=== PATIENT | male | born 1950 | race African-American/Black ===

== ENCOUNTER 2017-07-04 12:35 | Inpatient (IN) | payer OTHER ==
[~2017-07-04] VITALS: Ht 182.9 cm; Wt 104.3 kg
--- NOTE | ~2017-07-04 | D ---
[facility] [place] [address] DISCHARGE SUMMARY Name: BARRETT CARBAJAL Room #: 417-I [facility].#: [id number] Admission: 07/04/17 Attend Phys: Hamilton Vasquez MD Discharge: 07/06/17 Date of : 52 Report #: [id number] THIS REPORT FOR: //name// CC: Hamilton Vasquez DATE OF SERVICE: 07/06/2017 SUMMARY OF HISTORY AND PHYSICAL: The patient presented to the office with fever and rigors and shaking chills. His urinalysis was grossly abnormal. He was felt to have a significant cystitis, but more likely pyelonephritis given the systemic nature of his presenting symptoms. Admission for intravenous antibiotic therapy and further evaluation was indicated. SUMMARY OF HOSPITAL COURSE: He was admitted, Abernathy catheter was placed and drainage established and he was started on intravenous antibiotics. He quickly improved. CT scanning showed stranding around both kidneys and suggested pyelonephritis. He was seen in Urology consultation and recommendation was made for him to continue to self cath 3 or 4 times a week to keep persistent dilating the area of urethral stenosis that he had suffered many years ago when being catheterized and a false channel was created. After rehydration, his albumin was low along with low absolute lymphocyte count fulfilling the criteria for severe malnutrition. LABORATORY DATA: His creatinine was 1.6 on admission and dropped slightly to 1.4 at discharge, and this was baseline for him. Potassium 3.1 on admission, was replaced. His total bilirubin was 1.2, which is also a baseline for him. Albumin was 2.6 on the second hospital day after partial rehydration, indicating the presence of severe malnutrition. There was also absolute lymphopenia present. Hemoglobin was 14.3 on admission and 13.6 with rehydration. Erythrocyte sedimentation rate was elevated at 40. Urinalysis showed blood and leukocytes with many white blood cells. The culture grew E. coli greater than 100,000 colony forming units/mL. The E. coli was sensitive to all antibiotics tested. Urine cultures remained negative. CT scan of the abdomen and pelvis showed mild fatty infiltration of the liver. Bilateral perinephric fat stranding was noted. There were other changes that were consistent with bilateral pyelonephritis. An occasional chronic diverticulum was present without signs of infection. [address] [address] DISCHARGE SUMMARY Name: BARRETT CARBAJAL Room #: 417-I [facility]#: [id number] Admission: 07/04/17 Attend Phys: Hamilton Vasquez MD Discharge: 07/06/17 Date of : 52 Report #: [id number] DISCHARGE DIAGNOSES: 1. Acute pyelonephritis. 2. History of urethral stricture in the distant past from urethral injury, the patient self catheterizes several times a week to keep the area open. The patient is discharged on the medicines listed in the discharge sheet in the nursing portion of the computer medical record. He is to continue antibiotic for 7 more days after he gets home and he is to be seen in my office within 3-4 days. He is to drink quite a bit of fluid and use Tylenol for discomfort or elevated blood pressure. By: [id number] Hamilton Vasquez MD /nt
--- NOTE | ~2017-07-04 | EKG ---
[address] [address] ELECTROCARDIOGRAM REPORT Name: BARRETT CARBAJAL Room #: 417-I ADM IN M.R.#: [id number] Admission: 07/04/17 Attend Phys: Hamilton Vasquez MD Discharge: Date of : 52 Report #: [id number] THIS REPORT FOR: //name// [facility] Test Date: 2017-07-04 Test Time: 14:13:57 Pat Name: BARRETT CARBAJAL Department: Room: [facility] Gender: M Schedule Maker: Mary : 1950 Requested By: Hamilton Vasquez Order Number: [id number] MD: Osmel Lai Measurements Intervals Devol Rate: 95 P: 57 IL: 163 QRS: -20 QRSD: 91 T: 64 QT: 351 QTc: 442 Interpretive Statements Sinus rhythm Borderline left axis deviation Low voltage, extremity leads Nonspecific T abnormalities, anterior leads No previous ECG available for comparison Electronically Signed On 07-05-2017 7:57:05 CDT by Osmel Lai [email or web address] <ELECTRONICALLY SIGNED> By: Osmel Lai MD, [facility] 07/05/17 0757 1413 1413 Osmel Lai MD, [facility] /EPI
[2017-07-04 12:50] VITALS: BP 151/76
[2017-07-04] MEDS ORDERED: METOPROLOL SUCC50 MG PO (13:21)
[2017-07-04] MEDS ORDERED: LOTREL 5-10 MG1 EACH PO (13:23)
[2017-07-04] MEDS ORDERED: ALLEGRA ALLERG180 MG PO (13:24)
[2017-07-04] MEDS ORDERED: CRESTOR10 MG PO (13:25)
[2017-07-04] MEDS ORDERED: CHLORTHALIDONE25 MG PO (13:30)
[2017-07-04] MEDS ORDERED: FLECAINIDE ACE100 MG PO (13:31)
[2017-07-04] MEDS ORDERED: KIDS VITAMIN400 UNIT PO (13:32)
[2017-07-04 14:42] LABS: ABSOLUTE NEUTROPHILS 8.2 thou/uL (1.4-8.2); BASOPHILS 0.6 % (0.0-2.0); EOSINOPHILS 0.1 % (0.0-3.0); HEMATOCRIT 41.9 % (42.0-52.0); HEMOGLOBIN 14.3 gm/dL (14.0-18.0); LYMPHOCYTES 6.2 % (24.0-44.0); MCH 28.8 pg (26.0-34.0); MCHC 34.2 g/dL (28.0-37.0); MCV 84.3 fL (80.0-100.0); MONOCYTES 12.9 % (1.0-8.0); PLATELET COUNT 182 thou/uL (150-400); POLYS 80.2 % (36.0-66.0); RBC 4.97 mil/uL (4.50-6.00); RDW 13.6 % (10.5-14.5); WBC 10.2 thou/uL (4.0-11.0)
[2017-07-04 14:44] LABS: MANUAL DIFF NO
[2017-07-04 14:58] LABS: CREATININE 1.6 mg/dL (0.7-1.3); POTASSIUM 3.1 mmol/L (3.5-5.1); TOTAL BILIRUBIN 1.2 mg/dL (<0.1-1.0); TOTAL PROTEIN 7.3 g/dL (6.4-8.2)
[2017-07-04 15:06] LABS: URINE BILIRUBIN NEGATIVE (Negative); URINE BLOOD 3+ (Negative); URINE COLOR YELLOW; URINE GLUCOSE-RANDOM* NEGATIVE (Negative); URINE KETONES 1+ (Negative); URINE PROTEIN (DIPSTICK) 2+ (Negative)
[2017-07-04 15:09] LABS: URINE LEUKOCYTES-REFLEX 2+ (Negative)
[2017-07-04 15:16] LABS: CASTS None Seen /LPF (None Seen); CRYSTALS None Seen /LPF (None Seen); SQUAMOUS 0-3 Few /LPF (0-3); URINE RBC 0-2 Rare /HPF (0-2); URINE WBC-REFLEX >25 Many /HPF (0-5)
[2017-07-04 20:04] VITALS: BP 143/75
[2017-07-05 03:30] VITALS: BP 129/82
[2017-07-05 06:12] LABS: HEMATOCRIT 40.2 % (42.0-52.0); HEMOGLOBIN 13.6 gm/dL (14.0-18.0); MCH 28.7 pg (26.0-34.0); MCHC 33.7 g/dL (28.0-37.0); RBC 4.73 mil/uL (4.50-6.00); RDW 13.4 % (10.5-14.5); WBC 8.9 thou/uL (4.0-11.0)
[2017-07-05 06:23] LABS: ALBUMIN 2.6 g/dL (3.4-5.0); CALCIUM 8.3 mg/dL (8.5-10.1); CREATININE 1.5 mg/dL (0.7-1.3); POTASSIUM 3.5 mmol/L (3.5-5.1)
[2017-07-05 07:13] VITALS: BP 145/67
[2017-07-05 16:10] VITALS: BP 128/71
[2017-07-05 20:00] VITALS: BP 134/58
[2017-07-06 04:00] VITALS: BP 152/87
[2017-07-06 07:16] LABS: CALCIUM 8.1 mg/dL (8.5-10.1); CREATININE 1.4 mg/dL (0.7-1.3); POTASSIUM 3.7 mmol/L (3.5-5.1)
[2017-07-06 09:28] VITALS: BP 152/87
[2017-07-06 16:12] VITALS: BP 139/69
[2017-07-06] MEDS ORDERED: ASPIRIN325 PO (18:10)
[2017-07-06] MEDS ORDERED: AUGMENTIN 875-1 EACH PO (18:10)
[2017-07-06] MEDS ORDERED: ADVAIR 500-501 EACH INH (18:15)
[2017-07-06 18:28] VITALS: BP 139/69
== END 2017-07-06 20:21 | disposition home or self-care (01) | DRG 689 ==
LOC: 4E 12:35
PROVIDERS: Internal Medicine
DX: N12 Tubulo-interstitial nephritis, not specified as acute or chronic (principal); E43 Unspecified severe protein-calorie malnutrition; I10 Essential (primary) hypertension; R33.9 Retention of urine, unspecified; E78.5 Hyperlipidemia, unspecified; Z88.8 Allergy status to other drugs, medicaments and biological substances
CPT/HCPCS: 10783